=== PATIENT | male | born 1945 | race Caucasian/White ===

== ENCOUNTER 2017-10-07 22:05 | Emergency (ER) | payer MEDICARE ==
[~2017-10-07] VITALS: Ht 175.3 cm; Wt 75.0 kg
[~2017-10-07 22:05] MED LIST: AMLO1TAB12 PO; CITA20TA9 PO
[2017-10-07] MEDS ORDERED: LIDOCAINE-MPF 2% ,5ML ONE (22:29)
[2017-10-07] MEDS ORDERED: LIDOCAINE 2%, 20ML INFIL ONE (22:30)
[2017-10-07] MEDS ORDERED: BACITRACIN ZINC OINT 500U/GM, 0.9 GM ONE (23:10)
[2017-10-07 23:30] VITALS: BP 124/78
== END 2017-10-08 00:35 | disposition home or self-care (01) ==
LOC: ED 10-08 00:29
DX: S06.0X0A Concussion without loss of consciousness, initial encounter (principal); S01.112A Laceration without foreign body of left eyelid and periocular area, initial encounter; F10.10 Alcohol abuse, uncomplicated; W19.XXXA Unspecified fall, initial encounter; Y93.89 Activity, other specified; Y92.89 Other specified places as the place of occurrence of the external cause; Y99.8 Other external cause status
CPT/HCPCS: 12011; 12013; 70450; 99284

== ENCOUNTER 2018-08-06 14:44 | Emergency (ER) | payer MEDICARE ==
[~2018-08-06] VITALS: Ht 175.3 cm; Wt 83.0 kg
[2018-08-06] MEDS ORDERED: HYDROcodone/APAP 5/325 TABLET ONE (14:53)
[2018-08-06] MEDS ORDERED: PLEASE ENTER HEIGHT AND WEIGHT MC SCH (15:00)
[2018-08-06] MEDS ORDERED: HYDROcodone/APAP 5/325 TABLET PO ONE (15:00)
[2018-08-06 15:27] LABS: BASOPHILS # (AUTO) 0.03 x10^3/uL (0-0.1); BASOPHILS % (AUTO) 0 % (0-1); EOSINOPHILS # (AUTO) 0.04 x10^3/uL (0-0.4); EOSINOPHILS % (AUTO) 0 % (1-7); LYMPHOCYTES # (AUTO) 2.29 x10^3/uL (1-3.4); LYMPHOCYTES % (AUTO) 21 % (22-44); MD NO; MEAN CORPUSCULAR HEMOGLOBIN 33.1 pg (27.5-34.5); MEAN CORPUSCULAR HGB CONC 33.9 g/dL (33.2-36.2); MEAN CORPUSCULAR VOLUME 97.7 fL (81-97); MEAN PLATELET VOLUME 8.8 fL (7.4-10.4); MONOCYTES # (AUTO) 0.68 x10^3/uL (0.2-0.8); MONOCYTES % (AUTO) 6 % (2-9); NEUTROPHILS # (AUTO) 8.08 x10^3/uL (1.8-6.8); NEUTROPHILS % (AUTO) 73 % (42-75); PLATELET COUNT 243 x10^3/uL (130-400); RED BLOOD COUNT 4.78 x10^6/uL (4.38-5.82); RED CELL DISTRIBUTION WIDTH 15.7 % (9.4-14.8)
[2018-08-06] MEDS ORDERED: KETOROLAC 30 MG/1 ML ONE (16:36)
[2018-08-06] MEDS ORDERED: OXYcodone/APAP 5/325MG TABLET ONE (16:42)
[2018-08-06 16:54] LABS: HCT (SEDRATE) 41.8 % (39.2-51.8)
[2018-08-06] MEDS ORDERED: OXYcodone/APAP 5/325MG TABLET PO ONE (17:00)
[2018-08-06] MEDS ORDERED: KETOROLAC 30 MG/1 ML IM ONE (17:00)
[2018-08-06 18:56] VITALS: BP 124/74
[2018-08-06] MEDS ORDERED: GADOBUTROL 10 MMOL/10 ML PFS ONE (19:02)
== END 2018-08-06 20:54 | disposition home or self-care (01) ==
LOC: ED 20:00
DX: M10.072 Idiopathic gout, left ankle and foot (principal); M10.021 Idiopathic gout, right elbow; M13.821 Other specified arthritis, right elbow; M13.872 Other specified arthritis, left ankle and foot; I10 Essential (primary) hypertension; K21.9 Gastro-esophageal reflux disease without esophagitis
CPT/HCPCS: 36415; 73080; 73610; 73720; 80047; 84550; 85025; 85651; 86140; 99284; A9585

== ENCOUNTER 2019-12-02 08:43 | Emergency (ER) | payer MEDICARE, OTHER ==
[~2019-12-02] VITALS: Ht 175.3 cm; Wt 84.0 kg
[2019-12-02] MEDS ORDERED: SODIUM CHLORIDE FLUSH 10ML SYR IVF ONE (09:00)
--- NOTE | 2019-12-02 09:55 | NUR ---
PT REPORT FROM JANNET GATES. PT CARE TO BE ASSUMED.
--- NOTE | 2019-12-02 09:58 | NUR ---
PT IN HOSPITAL GOWN. PT ON VITALS AND CARDIAC MONITORS. PT STATED HE TESTED POSITIVE FOR COVID-19 MAYBE 2 MONTHS AGO. CALLED [facility] GAR[facility], WAS ABLE TO SPEAK WITH ALISHA-ARTIFICIAL BREAST FABRICATOR WHO STATED PT WAS TESTED 10/12/2019 AND WAS NEGATIVE.
[2019-12-02 10:16] LABS: ALBUMIN 3.5 g/dL (3.4-5.0); ANION GAP 8 mmol/L (5-15); CALCIUM 9.3 mg/dL (8.5-10.1); CHLORIDE 108 mmol/L (98-107); CREATININE 0.84 mg/dL (0.7-1.3)
[2019-12-02 10:21] LABS: CREATINE KINASE, TOTAL 46 U/L (39-308); TROPONIN I < 0.015 ng/mL (0.000-0.045)
--- NOTE | 2019-12-02 10:27 | NUR ---
PT RESTING QUIETLY ON GURNEY, A&OX4, RESP EVEN & UNLABORED, SPEECH SLIGHT HOARSE, SPEECH SLOW & DELIBERATE, SKIN WNL. STATES HE WAS TRYING TO GET OUT OF HIS RECLINER CHAIR IN EARLY AM, SLID ON TO FLOOR IN SEATED POSITION, STAFF FOUND PT ON FLOOR TODAY. DENIES PAIN CURRENTLY. ABLE TO TAKE DEEP BREATH W/OUT DIFFICULTY OR PAIN.
--- NOTE | 2019-12-02 10:38 | NUR ---
PT REMINDED OF NEED FOR URINE SPECIMEN. URINAL PLACED FOR PT.
[2019-12-02 10:55] LABS: BASOPHILS # (AUTO) 0.02 x10^3/uL (0-0.1); BASOPHILS % (AUTO) 0 % (0-1); EOSINOPHILS # (AUTO) 0.05 x10^3/uL (0-0.4); EOSINOPHILS % (AUTO) 1 % (1-7); LYMPHOCYTES % (AUTO) 20 % (22-44); MD NO; MEAN CORPUSCULAR HGB CONC 33.4 g/dL (33.2-36.2); MEAN CORPUSCULAR VOLUME 89.7 fL (81-97); MEAN PLATELET VOLUME 9.2 fL (7.4-10.4); MONOCYTES # (AUTO) 0.56 x10^3/uL (0.2-0.8); MONOCYTES % (AUTO) 5 % (2-9); NEUTROPHILS # (AUTO) 7.81 x10^3/uL (1.8-6.8); NEUTROPHILS % (AUTO) 74 % (42-75); PLATELET COUNT 233 x10^3/uL (130-400); RED BLOOD COUNT 4.94 x10^6/uL (4.38-5.82); RED CELL DISTRIBUTION WIDTH 14.8 % (9.4-14.8)
--- NOTE | 2019-12-02 11:23 | NUR ---
PT'S SPOUSE CALLED: DENISE MATTSON, CELL [phone]. ID VERIFIED. PT STATUS PROVIDED. DENISE UNSURE IF PT TAKES ANY MEDICATIONS NOW; STATES HE USED TO TAKE MED FOR HTN AND DEPRESSION.
[2019-12-02 11:25] LABS: MICROSCOPIC INDICATED
--- NOTE | 2019-12-02 12:52 | NUR ---
STILL WAITING FOR WALKER FROM [facility]
[2019-12-02 13:20] VITALS: BP 163/87
--- NOTE | 2019-12-02 13:40 | NUR ---
PT AMBULATORY 20FT W/ WALKER; GAIT SLOW, DELIBERATE. RETURNED TO BED W/OUT INCIDENT. ALEXEY JO WILL BE NOTIFIED.
--- NOTE | 2019-12-02 14:35 | NUR ---
CALLED [facility] ([phone]); SPOKE W/ [place], [employer]; FACILITY DOESN'T HAVE TRANSPORT AVAILABLE; WILL SEND PT VIA [employer].
== END 2019-12-02 15:07 | disposition home or self-care (01) ==
LOC: ED 09:10
DX: R53.1 Weakness (principal); F03.90 Unspecified dementia, unspecified severity, without behavioral disturbance, psychotic disturbance, mood disturbance, and anxiety; K21.9 Gastro-esophageal reflux disease without esophagitis; I10 Essential (primary) hypertension; I44.0 Atrioventricular block, first degree; R07.9 Chest pain, unspecified
CPT/HCPCS: 36415; 71045; 80048; 81001; 82040; 82550; 83735; 83880; 84484; 85025; 87086; 93005; 99285

== ENCOUNTER 2019-12-16 17:39 | Emergency (ER) | payer MEDICARE ==
[~2019-12-16] VITALS: Ht 175.3 cm; Wt 82.0 kg
--- NOTE | 2019-12-16 17:59 | NUR ---
74 YR OLD MALE ARRIVE VIA EMS. PER REPORT PT HAD SUDDEN ONSET OF N/V D AT 4PM. PT FROM [place] AT [facility]. PT AWAKE, ALERT TO SELF, STATES YEAR "2019" PLACE "[place]" [place] "[place]" PT ANSWERS QUESTIONS SLOWLY. FOLLOWS COMMANDS. DENIES PAIN. PT WITH SMALL AMT OF BROWN MUCUS EMESIS UPON ARRIVAL. PT ARRIVED WITH IV IN LAC. BS 131. ROBEL BLACKBURN AT BEDSIDE TO RAYO PT.
--- NOTE | 2019-12-16 18:16 | NUR ---
PT TAKEN OFF OXYGEN TO CHECK RA SATS.
[2019-12-16 18:32] LABS: BASOPHILS % (AUTO) 0 % (0-1); EOSINOPHILS # (AUTO) 0.12 x10^3/uL (0-0.4); EOSINOPHILS % (AUTO) 1 % (1-7); LYMPHOCYTES # (AUTO) 1.41 x10^3/uL (1-3.4); LYMPHOCYTES % (AUTO) 11 % (22-44); MD NO; MEAN CORPUSCULAR HEMOGLOBIN 30.2 pg (27.5-34.5); MEAN CORPUSCULAR HGB CONC 33.5 g/dL (33.2-36.2); MEAN CORPUSCULAR VOLUME 90.1 fL (81-97); MEAN PLATELET VOLUME 8.6 fL (7.4-10.4); MONOCYTES # (AUTO) 0.15 x10^3/uL (0.2-0.8); MONOCYTES % (AUTO) 1 % (2-9); NEUTROPHILS # (AUTO) 10.99 x10^3/uL (1.8-6.8); NEUTROPHILS % (AUTO) 87 % (42-75); PLATELET COUNT 241 x10^3/uL (130-400); RED BLOOD COUNT 4.72 x10^6/uL (4.38-5.82); RED CELL DISTRIBUTION WIDTH 14.9 % (9.4-14.8)
--- NOTE | 2019-12-16 18:37 | NUR ---
PT DOZING INTERMITTENTLY, AROUSES EASILY. NO FURTHER EMESIS NOTED. PT WITH URINAL AT BEDSIDE, AWARE OF URINE SPECIMAN NEEDED. AWAITING TEST RESULTS. NO NEEDS EXPRESSED AT THIS TIME.
[2019-12-16 18:57] LABS: CHLORIDE 115 mmol/L (98-107)
[2019-12-16 19:12] LABS: ALANINE AMINOTRANSFERASE 14 U/L (12-78); ALBUMIN 3.3 g/dL (3.4-5.0); ALKALINE PHOSPHATASE 80 U/L (45-117); ANION GAP 7 mmol/L (5-15); BILIRUBIN,TOTAL 0.6 mg/dL (0.2-1.0); CALCIUM 9.2 mg/dL (8.5-10.1); CREATININE 0.89 mg/dL (0.7-1.3); TOTAL PROTEIN 7.2 g/dL (6.4-8.2)
--- NOTE | 2019-12-16 19:15 | NUR ---
BEDSIDE REPORT TO RAMON POWER
--- NOTE | 2019-12-16 19:50 | NUR ---
PT TOLERATED STRAIGHT CATH WELL, LAURY RN TO WITNESS. RESPIRATIONS REMAIN EVEN AND UNLABORED. CALL LIGHT IN REACH AND BEDRAILS UP. PT CONNECTED TO BP AND O2 MONITORS.
[2019-12-16 19:51] LABS: MICROSCOPIC AUTO
--- NOTE | 2019-12-16 20:13 | NUR ---
PT HAD APPROX 50CCS OF EMISIS SAME COLOR PREVIOUS EPISODE (DARK BROWN/ RED) THAT OCCURED PRIOR TO THIS RN ASSUMING CARE. ERP MADE AWARE.
--- NOTE | 2019-12-16 20:22 | NUR ---
LUCAS, SON [phone].
--- NOTE | 2019-12-16 20:45 | NUR ---
PT TO IMAGING.
[2019-12-16] MEDS ORDERED: ONDANSETRON ODT 4 MG PO ONE (21:00)
[2019-12-16] MEDS ORDERED: SODIUM CHLORIDE 0.9% 1,000ML IVBOLUS ONE (21:00)
[2019-12-16] MEDS ORDERED: ONDANSETRON 2MG/ML, 2ML IVPush ONE (21:00)
[2019-12-16] MEDS ORDERED: HYDROmorphone 2 MG/ML, 1ML IVPush ONE (21:00)
[2019-12-16] MEDS ORDERED: OMNIPAQUE 350 MG/ML, 100ML BOTTLE ONE (21:16)
--- NOTE | 2019-12-16 21:16 | NUR ---
PT LAYING IN BED, SLEEPING, EYES CLOSED, RESPIRATIONS EVEN AND UNLABORED, AROUSABLE TO VERBAL STIMULI. PT HAS CALL LIGHT IN REACH. LIGHTS OFF TO PROMOTE REST, ALL NEEDS MET AT THIS TIME. AWAITING CT READ AND WILL PUT CHART BACK UP FOR RECHECK.
[2019-12-16] MEDS ORDERED: ONDANSETRON ODT 4 MG ONE (21:54)
--- NOTE | 2019-12-16 23:06 | NUR ---
PT REMAINS LAYING IN BED, CONNECTED TO BP AND O2 MONITORS. VSS. AWAITING [facility] FOR RIDE HOME. LIGHTS OF TO PROMOTE REST. ALL NEEDS MET AT THIS TIME.
[2019-12-16 23:32] VITALS: BP 175/87
== END 2019-12-16 23:34 | disposition home or self-care (01) ==
LOC: ED 18:29
DX: R11.2 Nausea with vomiting, unspecified (principal); R19.7 Diarrhea, unspecified; R09.02 Hypoxemia; I10 Essential (primary) hypertension; M10.9 Gout, unspecified
CPT/HCPCS: 36415; 71045; 74177; 80053; 81001; 85025; 99285; Q0162; Q9967